=== PATIENT | male | born 1990 | race Caucasian/White ===

== ENCOUNTER → 2017-01-08 | Outpatient (CLI) | payer BC ==
--- NOTE | 2017-01-08 18:55 | MR ---
EXAMINATION TYPE: MR lumbar spine wo con DATE OF EXAM: 01/08/2017 6:41 PM COMPARISON: NONE HISTORY: DDD at lumbar region Multiplanar, MultiSpin echo imaging of the lumbar spine was performed. L1-L2: Normal disc appearance without desiccation. No herniation, protrusion or disc bulging. No ca nal stenosis is present. Foramina are patent bilaterally. L2-L3: Normal disc appearance without desiccation. No herniation, protrusion or disc bulging. No ca nal stenosis is present. Foramina are patent bilaterally. L3-L4: Normal disc appearance without desiccation. Mild posterior disc bulge. No herniation or protru bob. No canal stenosis is present. Foramina are patent bilaterally. L4-L5: Normal disc appearance without desiccation. Mild posterior disc bulge. No herniation or protru bob. No canal stenosis is present. Foramina are patent bilaterally. L5-S1: Normal disc appearance without desiccation. Mild posterior disc bulge. No herniation or protru bob. No canal stenosis is present. Foramina are patent bilaterally. Lumbar segments are intact. No paraspinal masses are identified. Conus medullaris has a normal appe arance. IMPRESSION: 1. Normal disc bulging at L3-4, L4-5 and L5-S1 without herniation protrusion or central stenosis.
== END | disposition home or self-care (01) ==
LOC: RADMRIMAIN 18:04
PROVIDERS: ATTEND Family Medicine
DX: M51.35 Other intervertebral disc degeneration, thoracolumbar region (principal)
CPT/HCPCS: 72148

== ENCOUNTER → 2017-03-20 | Outpatient (CLI) | payer BC ==
--- NOTE | 2017-03-20 14:39 | P.HPIM ---
History of Present Illness H&P Date: 03/20/17 Chief Complaint: low back pain This is a 27-year-old patient referred by Dr. 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 Patient has been taking medications from primary care physician including Ambrose medications, but his PCP does not want to write them anymore. Patient denies adverse drug effects from medications. Patient also denies new-onset weakness, bowel/bladder incontinence, or any other signs or symptoms of cauda equina syndrome. There are no signs of acute intoxication, and no indications of medication diversion or overuse. Patient notes that pain worsens significantly with standing (especially at his job) and walking, and improves with rest, ice, and medication. Patient has used several types of medications for pain, including NSAIDS, OPIOIDS, TRAMADOL, ANTIDEPRESSANTS, and BENZODIAZEPINES. Patient HAS NOT had surgery. Patient HAS NOT had injections previously. Patient HAS NOT had physical therapy recently. In addition to above, 13-point review of systems is also negative for chest pain , shortness of breath, changes in vision, changes in hearing, new onset weakness , abdominal pain, diarrhea, extreme fatigue, malaise, fever, skin changes, homicidal or suicidal ideation, or bowel or bladder incontinence. Vital Signs: Reviewed in EMR Gen: WDWN, AAOx3, NAD HEENT: NCAT, EOMI, hearing grossly normal Pulm: resp unlabored Abd: soft, NT, ND Neck: supple, trachea midline ROM in flexion lumbar spine: reduced ROM in extension lumbar spine: reduced Lumbar paravertebral tenderness: + Facet loading: + bilateral, R > L SI joint tenderness: + R side Devaughn's test: + R side Straight leg raise: neg Neuro: CN II-XII grossly intact, muscle strength lower extremities PRESERVED Medications and Allergies Home Medications Medication Instructions Recorded Confirmed Type Dextroamphetamine/Amphetamine 1 tab PO DAILY 03/20/17 03/20/17 History [Adderall Xr] Hydrocodone/Acetaminophen [Ambrose 1 tab PO BID PRN 03/20/17 03/20/17 History 7.5-325] Allergies Allergy/AdvReac Type Severity Reaction Status Date / Time iodine AdvReac Unknown Verified 03/20/17 14:07 Childhood Penicillins AdvReac Unknown Verified 03/20/17 14:07 Childhood Results Comments: MRI lumbar spine dated 01/08/2017 demonstrates mild posterior disc bulging at L3 -L4, L4-L5, and L5-S1 without any herniations or protrusions or any spinal stenosis. All neural foramina are patent bilaterally. Assessment and Plan (1) Bulging lumbar disc Current Visit: Yes Status: Chronic Code(s): M51.26 - OTHER INTERVERTEBRAL DISC DISPLACEMENT, LUMBAR REGION SNOMED Code(s): 395783205 (2) Chronic pain syndrome Current Visit: Yes Status: Chronic Code(s): G89.4 - CHRONIC PAIN SYNDROME SNOMED Code(s): 555154083 Plan: 1. Explanation: Opioid and psychological risk scores were reviewed. Diagnoses , prognoses, and multiple treatment options including but not limited to physical therapy, interventional therapies, adjuvant medical therapies, narcotic medication therapies, and surgery were discussed with the patient and all questions were answered to the patient's satisfaction. 2. Opioid agreement: no opioids prescribed today 3. Counseling: The patient was counseled extensively on SMOKING CESSATION, BODY MASS INDEX, EXERCISE. Specifically, the patient was instructed regarding the importance of smoking cessation, weight control, and exercise in the context of both chronic pain and overall health. 4. Procedures: none for now, MRI demonstrates only mild posterior disc bulges 5. Consultations: physical therapy 6. Investigations: none 7. Medications: none prescribed 8. Disposition: f/u for re-eval in 6-8 weeks. This patient's pain appears largely muscular in nature and I am not convinced he will benefit from spinal interventions. Thus, I will have him undergo PT prior to any interventional procedures. PQRS measures: 1-Patient's medications are documented in the chart. 2-Tobacco use is positive, counseling given 3-Patient has not had a pneumococcal vaccine. 4-Advanced care planning discussed, patient unable to give. 5-Opioid contract NOT signed with the patient. 6-Pain positive, follow-up visit or procedure scheduled 7-Patient's blood pressure measured and documented, and patient will follow up with the primary care due to hypertension. 8-Patient's weight was measured, and body mass index ABOVE the normal limits, and counseling was done. Patient instructed to follow up with PCP. 9-Patient WAS NOT identified as an unhealthy alcohol user. Time with Patient: Greater than 30
[2017-03-20 14:43] VITALS: BP 131/90; PULSE 95; RESP 16
== END | disposition home or self-care (01) ==
LOC: PNWHC3 14:00
PROVIDERS: ATTEND Anesthesiology
DX: M51.26 Other intervertebral disc displacement, lumbar region (principal); I10 Essential (primary) hypertension; Z88.0 Allergy status to penicillin; Z91.041 Radiographic dye allergy status; Z79.899 Other long term (current) drug therapy; Z79.891 Long term (current) use of opiate analgesic
CPT/HCPCS: 99211

== ENCOUNTER → 2021-06-13 | Outpatient (CLI) | payer OTHER ==
--- NOTE | 2021-06-13 16:53 | XR ---
Lumbar spine HISTORY: R52 Pain 3 views of the lumbar spine Lumbar vertebral bodies show preserved height, alignment, bone mineralization. Disc spaces are mainta ined. No evident spondylolysis. No paraspinal mass. IMPRESSION: Normal lumbar spine.
--- NOTE | 2021-06-13 16:58 | XR ---
Cervical spine and 2 view thoracic spine HISTORY: R52 Pain 3 views of the thoracic spine 5 views of the cervical spine Cervical spine: No evident foraminal encroachment on oblique views. Oblique images of the left neural foramina at the lower aspect are somewhat limited however. Cervical vertebral bodies show preserved height, alignmen t, bone mineralization. Odontoid view is limited. Disc spaces are normal. Thoracic spine: There is a slight spinal curvature. Thoracic vertebral bodies show preserved height a nd alignment. Disc spaces are maintained. impression: Normal cervical spine. There may be a slight thoracic spinal curvature.
== END ==
LOC: RADXRMAIN 12:29
PROVIDERS: ATTEND Internal Medicine
DX: R52 Pain, unspecified (principal)
CPT/HCPCS: 72050; 72070; 72100

== ENCOUNTER → 2024-11-06 | Outpatient (CLI) | payer BC ==
--- NOTE | 2024-11-07 10:14 | MR ---
INDICATION: Patient age:Male; 34 years old; Reason for study: M54.2 CERVICALGIA T14.8XXA R94.131; [facility]. COMPARISON: Cervical spine radiograph 06/13/2021. TECHNIQUE: Multi planar, multi sequence imaging was performed of the cervical spine. No Gadolinium wa s given. FINDINGS: Alignment: The cervical vertebral bodies have preserved heights. Alignment is within normal limits gi julian patient positioning. Bones: Bone signal is within normal limits. Anterior osteophytosis at C6-C7. Cord: The spinal cord is unremarkable with regards to their signal intensity and morphology. Discs: Multilevel disc desiccation is present without significant height loss. C2-C3: No significant disc pathology. The spinal canal is patent. No neural foraminal stenosis. C3-C4: Eccentric right broad-based disc bulge with mild effacement of the anterior thecal sac. No sig nificant spinal canal stenosis. Uncovertebral joint hypertrophy. Mild right neuroforaminal stenosis. The left neural foramen is patent. C4-C5: Minimal broad-based disc bulge. No significant effacement of the anterior thecal sac. No spina l canal stenosis. Uncovertebral joint hypertrophy. Mild right neural foraminal stenosis. The left ne ural foramen is patent. C5-C6: Minimal broad-based disc bulge. No significant effacement of the anterior thecal sac. No spina l canal stenosis. Uncovertebral joint hypertrophy. The left neural foramen is patent. Minimal right n eural foraminal stenosis. C6-C7: No significant disc pathology. The spinal canal is patent. No neural foraminal stenosis. C7-T1: No significant disc pathology. The spinal canal is patent. No neural foraminal stenosis. Other: None. IMPRESSION: 1. No evidence for disc herniation or significant spinal canal stenosis. 2. Mild multilevel disc degeneration with associated osteoarthritic changes. [facility], , 11/07/2024 10:11 AM
== END | disposition home or self-care (01) ==
LOC: RADMRIMAIN 18:41
PROVIDERS: ATTEND Family Medicine
DX: M50.30 Other cervical disc degeneration, unspecified cervical region (principal); T14.8XXA Other injury of unspecified body region, initial encounter; R94.131 Abnormal electromyogram [EMG]
CPT/HCPCS: 72141